=== PATIENT | male | born 1965 | race Caucasian/White ===

== ENCOUNTER 2018-05-09 14:21 | Inpatient (IN) | payer BC ==
[~2018-05-09] VITALS: Ht 162.6 cm; Wt 91.6 kg
[2018-05-09 15:57] LABS: MEAN CORPUSCULAR VOLUME 114.1 fL (80.0-94.0); MEAN PLATELET VOLUME 9.9 fl (7.4-10.4); RED BLOOD CELL COUNT 0.98 mill/uL (4.7-6.1); RED CELL DISTRIBUTION WIDTH 20.6 % (11.6-14.6)
[2018-05-09 15:59] LABS: HEMOGLOBIN. 3.9 g/dL (14.0-18.0)
[2018-05-09 16:00] LABS: CHLORIDE 104 mEq/L (98-107); HEMATOCRIT. 11.2 % (42.0-52.0); PLATELET 44 x1000/uL (130-400)
[2018-05-09 16:01] LABS: INR 1.1; PROTHROMBIN TIME 11.6 sec (9.4-11.6)
[2018-05-09 16:29] LABS: NUCLEATED RED BLOOD CELLS 1 /100 WBC; PLATELET ESTIMATE MARKEDLY DECREASED
[2018-05-09] MEDS: DEXT 5%/0.45% NACL 1000ML 1,000 ML IV SCH ×2 (18:57→20:33)
[2018-05-09] MEDS ORDERED: DOCUSATE SODIUM 100MG CAPSULE PO PRN (19:00)
[2018-05-09] MEDS ORDERED: DIPHENHYDRAMINE 50MG/ML VIAL IV PRN (19:00)
[2018-05-09] MEDS ORDERED: IPRATROPIUM/ALBUTEROL 0.5-3(2.5)MG/3ML NEB INH PRN (19:00)
[2018-05-09] MEDS ORDERED: CLONIDINE 0.1MG TABLET PO PRN (19:00)
[2018-05-09] MEDS ORDERED: NA PHOS,M-B/NA PHOS,DI-BA ENEMA 118ML PR PRN (19:00)
[2018-05-09] MEDS ORDERED: ONDANSETRON HCL 4MG/2ML VIAL IV PRN (19:00)
[2018-05-09] MEDS ORDERED: ACETAMINOPHEN 325MG TABLET PO PRN (19:00)
[2018-05-09] MEDS ORDERED: LORAZEPAM 0.5MG TABLET PO PRN (19:00)
[2018-05-09] MEDS ORDERED: MAGNESIUM/ALUMINUM HYDROXIDE/SIMETHICONE 30ML UDC PO PRN (19:00)
[2018-05-09 19:31] LABS: ETHANOL BLOOD < 10 mg/dL
[2018-05-09 19:32] LABS: TOTAL IRON BINDING CAPACITY 294 ug/dL (250-450)
[2018-05-09 20:00] LABS: HEPATITIS B SURFACE ANTIGEN NEGATIVE
[2018-05-09 20:02] LABS: FOLIC ACID (FOLATE) SERUM > 20.00 ng/mL (>5.38)
[2018-05-09 20:04] LABS: VITAMIN B12 SERUM < 60 pg/mL (211-911)
[2018-05-09] MEDS ORDERED: PANTOPRAZOLE SODIUM 40 MG/VIAL IV ONE (20:18)
[2018-05-09 20:28] LABS: HEPATITIS B CORE AB IGM NEGATIVE
[2018-05-09 20:30] LABS: HEPATITIS A AB IGM NEGATIVE (NEGATIVE)
[2018-05-09] MEDS ORDERED: PANTOPRAZOLE 80 MG in SODIUM CHLORIDE 0.9% 100 ML IV SCH (21:00)
[2018-05-09 22:45] VITALS: BP 112/47
[2018-05-09] MEDS ORDERED: CYANOCOBALAMIN 1000MCG/ML VIAL IM NR (22:45)
[2018-05-09] MEDS ORDERED: ZOLPIDEM TARTRATE 5MG TABLET PO PRN (23:00)
[2018-05-09 23:30] VITALS: BP 112/47
[2018-05-10] VITALS (18 sets, daily range): BP systolic 106–134; BP diastolic 59–71
[2018-05-10 01:44] LABS: CREATINE KINASE 63 IU/L (39-308); CREATINE KINASE MB FRACTION 0.8 ng/mL (0.5-3.6)
[2018-05-10] MEDS: DEXT 5%/0.45% NACL 1000ML 1,000 ML IV SCH (06:07)
[2018-05-10] MEDS: CYANOCOBALAMIN 1000MCG/ML VIAL IM SCH (08:17)
[2018-05-10] MEDS ORDERED: DEXTROSE 50% WATER 50ML SYRINGE IV PRN (09:30)
[2018-05-10] MEDS: PANTOPRAZOLE 80 MG in SODIUM CHLORIDE 0.9% 100 ML IV SCH (09:50)
[2018-05-10] MEDS: BLOOD SUGAR DIAGNOSTIC STRIP TEST SCH ×3 (12:10→20:31)
[2018-05-10] MEDS: INSULIN LISPRO 100 UNITS/ML SUBCUT SCH ×3 (12:15→20:30)
[2018-05-10 13:14] LABS: BASOPHILS % 0.6 % (0.0-2.0); EOSINOPHILS % 2.6 % (0.0-5.0); LYMPHOCYTES % 59.3 % (20.0-50.0); MEAN CORPUSCULAR HEMOGLOBIN 34.5 pg (28.0-32.0); MEAN CORPUSCULAR VOLUME 97.6 fL (80.0-94.0); MONOCYTES % 1.4 % (2.0-8.0); NEUTROPHILS % 36.1 % (40.0-76.0); RED BLOOD CELL COUNT 2.01 mill/uL (4.7-6.1); RED CELL DISTRIBUTION WIDTH 26.8 % (11.6-14.6)
[2018-05-10 13:27] LABS: HEMATOCRIT. 19.6 % (42.0-52.0)
[2018-05-10 13:28] LABS: PLATELET 41 x1000/uL (130-400)
[2018-05-10 13:31] LABS: CHLORIDE 107 mEq/L (98-107)
[2018-05-10 13:43] LABS: CREATINE KINASE 55 IU/L (39-308)
[2018-05-10 13:45] LABS: CREATINE KINASE MB FRACTION < 0.5 ng/mL (0.5-3.6)
[2018-05-11] VITALS: BP 101/61
[2018-05-11] MEDS: PANTOPRAZOLE 80 MG in SODIUM CHLORIDE 0.9% 100 ML IV SCH ×3 (02:40→14:49)
[2018-05-11 04:00] VITALS: BP 100/57
[2018-05-11] MEDS: DEXT 5%/0.45% NACL 1000ML 1,000 ML IV SCH ×4 (06:04→20:45)
[2018-05-11] MEDS: INSULIN LISPRO 100 UNITS/ML SUBCUT SCH ×4 (06:12→20:42)
[2018-05-11] MEDS: BLOOD SUGAR DIAGNOSTIC STRIP TEST SCH ×4 (06:12→20:41)
[2018-05-11 08:00] VITALS: BP 122/76
[2018-05-11 08:27] LABS: HIV SCREEN 4G Non Reactive (Non Reactive)
[2018-05-11] MEDS: GUAIFENESIN 200MG/10ML SUGAR FREE UDC PO PRN ×2 (08:43→14:46)
[2018-05-11] MEDS: CYANOCOBALAMIN 1000MCG/ML VIAL IM SCH (08:51)
[2018-05-11 09:36] LABS: HEMOGLOBIN. 8.4 g/dL (14.0-18.0); MEAN CORPUSCULAR HEMOGLOBIN 33.2 pg (28.0-32.0); MEAN CORPUSCULAR VOLUME 94.8 fL (80.0-94.0); MEAN PLATELET VOLUME 10.8 fl (7.4-10.4); RED BLOOD CELL COUNT 2.54 mill/uL (4.7-6.1); RED CELL DISTRIBUTION WIDTH 25.8 % (11.6-14.6)
[2018-05-11 10:06] LABS: CHLORIDE 108 mEq/L (98-107)
[2018-05-11 11:18] LABS: NUCLEATED RED BLOOD CELLS 1 /100 WBC
[2018-05-11 11:19] LABS: PLATELET ESTIMATE MARKEDLY DECREASED
[2018-05-11 11:20] LABS: PLATELET 41 x1000/uL (130-400)
[2018-05-11 12:00] VITALS: BP 144/82
[2018-05-11 16:00] VITALS: BP 122/72
[2018-05-11] MEDS ORDERED: MORPHINE SULFATE 4 MG/ML CPJ (NOT FOR IM USE) IV PRN (19:30)
[2018-05-11 20:00] VITALS: BP 143/82
[2018-05-12] VITALS (12 sets, daily range): BP systolic 104–127; BP diastolic 48–73
[2018-05-12] MEDS: INSULIN LISPRO 100 UNITS/ML SUBCUT SCH ×3 (06:24→16:37)
[2018-05-12] MEDS: BLOOD SUGAR DIAGNOSTIC STRIP TEST SCH ×3 (06:24→16:37)
[2018-05-12] MEDS: DEXT 5%/0.45% NACL 1000ML 1,000 ML IV SCH (06:25)
[2018-05-12 07:03] LABS: HEMATOCRIT. 22.3 % (42.0-52.0); HEMOGLOBIN. 7.9 g/dL (14.0-18.0); MEAN CORPUSCULAR HEMOGLOBIN 33.1 pg (28.0-32.0); MEAN CORPUSCULAR VOLUME 93.7 fL (80.0-94.0); MEAN PLATELET VOLUME 10.9 fl (7.4-10.4); RED BLOOD CELL COUNT 2.38 mill/uL (4.7-6.1); RED CELL DISTRIBUTION WIDTH 26.2 % (11.6-14.6)
[2018-05-12 07:10] LABS: CHLORIDE 111 mEq/L (98-107)
[2018-05-12 07:15] LABS: PHOSPHORUS 4.3 mg/dL (2.5-4.9)
[2018-05-12 07:50] LABS: PLATELET 37 x1000/uL (130-400)
[2018-05-12] MEDS ORDERED: PANTOPRAZOLE SODIUM 40 MG/VIAL IV SCH (09:00)
[2018-05-12] MEDS: CYANOCOBALAMIN 1000MCG/ML VIAL IM SCH (09:03)
[2018-05-12] MEDS ORDERED: PROPOFOL 200MG/20ML VIAL IV ONE ×2 (12:56→13:09)
[2018-05-12] MEDS ORDERED: ONDANSETRON HCL 4MG/2ML VIAL IV PRN (13:45)
[2018-05-12] MEDS ORDERED: HYDROMORPHONE HCL/PF 2MG/ML CPJ IV PRN (13:45)
[2018-05-12] MEDS ORDERED: MORPHINE SULFATE 4 MG/ML CPJ (NOT FOR IM USE) IV PRN (13:45)
[2018-05-12] MEDS ORDERED: MEPERIDINE HCL/PF 25MG/ML CPJ IV PRN (13:45)
[2018-05-12 17:19] LABS: PLATELET ESTIMATE MARKEDLY DECREASED
== END 2018-05-12 21:35 | disposition home or self-care (01) | DRG 810 ==
LOC: ER 14:21 → 8WST 17:02 → ENRESERV 21:17
PROVIDERS: ADMIT Internal Medicine; ATTEND Internal Medicine
PROC: 30233N1 Transfusion of Nonautologous Red Blood Cells into Peripheral Vein, Percutaneous Approach (ICD-10-PCS; 2018-05-09)
PROC: 07DQ3ZZ Extraction of Sternum Bone Marrow, Percutaneous Approach (ICD-10-PCS; principal; 2018-05-12 10:00)
DX: D61.818 Other pancytopenia (principal); D46.9 Myelodysplastic syndrome, unspecified; D51.9 Vitamin B12 deficiency anemia, unspecified; E83.52 Hypercalcemia; E11.65 Type 2 diabetes mellitus with hyperglycemia; R74.0 Nonspecific elevation of levels of transaminase and lactic acid dehydrogenase [LDH]; I10 Essential (primary) hypertension; R07.89 Other chest pain; E80.6 Other disorders of bilirubin metabolism; Z87.891 Personal history of nicotine dependence; Z79.899 Other long term (current) drug therapy
CPT/HCPCS: 36415; 38220; 71045; 74176; 80048; 80053; 82550; 82553; 82607; 82746; 82962; 83036; 83540; 83550; 83615; 83735; 83880; 83921; 84100; 84484; 84550; 85025; 85060; 85097; 85610; 86705; 86709; 86803; 86850; 86900; 86920; 87186; 87340; 88313; 93005; 93970; 96365; 99291; C9113; G0482; J2704; J3420; J7040; J7050; P9016